=== PATIENT | female | born 2005 | race Caucasian/White ===

== ENCOUNTER 2024-09-16 03:41 | Emergency (ER) | payer SELFPAY ==
--- OUTSIDE RECORDS SUMMARY | 2024-09-15 13:45 | XMS_ITS | Encounter Summary ---
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 * GERD in Adults: Diet Changes (Montserratian) documented in this encounter Progress Notes * Tatum Leos MD - 09/15/2024 1:45 PM EDT Chief Complaint Vomiting, Heartburn, and weight gain Subjective Elif Aj presents to [facility] acid reflux Symptoms are: new. [...] the AVS if appropriate. Patient or patient licensing representative verbalized consent for the use of Ambient Listening during the visit with Tatum Leos MD for chart documentation. 09/15/2024 14:09 EDT Electronically signed by Tatum Leos MD, 09/15/24, 2:10 PM EDT. documented in this encounter Plan of Treatment Upcoming Encounters Date Type Department Care Team (Late st Contact Info) Description 10/04/2024 2:00 PM EDT Office Visit [facility] [address] [place] [phone] Frances Marsh, [address] [address] 12/22/2024 9:00 AM EST Office Visit [facility] [address] [phone] Tatum Leos MD [address] [address] documented as of this encounter Visit Diagnoses Diagnosis Gastroesophageal reflux disease, unspecified whether esophagitis present- Primary Nausea and vomiting, unspecified vomiting type Weight gain due to medication documented in this encounter Care Teams Merchandise Director Relationship Specialty Start Date End Date Tatum Leos MD [address] [address] PCP - General Family Medicine 11/29/22 documented as of this encounter
--- NOTE | 2024-09-16 03:51 | XR_ITS ---
PROCEDURE INFORMATION: Exam: XR Left Ankle Exam date and time: 09/16/2024 4:05 AM Age: 19 years old Clinical indication: Pain; Ankle; Left; Additional info: Fall ttp lateral maleolus TECHNIQUE: Imaging protocol: Radiologic exam of the left ankle. Views: 3 or more views. COMPARISON: No relevant prior studies available. FINDINGS: Bones/joints: No acute fracture or dislocation. Soft tissues: Soft tissue swelling of the ankle. IMPRESSION: No acute fracture or dislocation.
--- NOTE | 2024-09-16 03:51 | XR_ITS ---
PROCEDURE INFORMATION: Exam: XR Right Ankle Exam date and time: 09/16/2024 4:05 AM Age: 19 years old Clinical indication: Pain; Ankle; Right; Additional info: Fall ttp medial maleolus TECHNIQUE: Imaging protocol: Radiologic exam of the right ankle. Views: 3 or more views. COMPARISON: No relevant prior studies available. FINDINGS: Bones/joints: Mildly displaced acute fracture of the posterior malleolus. Small acute avulsed fracture fragment from the medial malleolus. Soft tissues: Significant soft tissue swelling of the ankle. IMPRESSION: 1. Mildly displaced acute fracture of the posterior malleolus. 2. Small acute avulsed fracture fragment from the medial malleolus.
--- NOTE | 2024-09-16 03:52 | ED_ITS ---
Discharge Plan Disposition Patient Disposition: Home, Self-Care Condition: Good Prescriptions Prescriptions: New hydrocodone-acetaminophen 5-325 mg tablet 1 tab PO BID PRN (Reason: pain (scale score 7-10)) Qty: 7 0RF Referrals Follow up/Referrals: Provider,Referral, [Primary Care Provider, Medical] - See instructions Activity Restrictions/Add. Instructions Additional Instructions/Restrictions: You were evaluated in the ER and I believe to be appropriate for discharge at this time. Do not put any weight on the right foot or leg. Use the crutches to get around. Keep the splint clean and dry. Do not apply pressure to the splint or let it get wet. If the splint becomes damaged or wet, return to the ER for replacement. Take Tylenol and ibuprofen if needed for pain, do not exceed the recommended dose on the bottle. If your pain is not controlled with these medications, then you can take the prescribed hydrocodone if needed for severe, breakthrough pain. Only take this medication as directed as it can cause dependence and addiction. It also has multiple side effects including sleepiness, impaired judgment, nausea, constipation. If you have constipation, take a stool softener or mild laxative. Do not drive or operate machinery after taking this medication. Be aware that this medication contains acetaminophen (Tylenol) so consider this when calculating your daily dose so you do not take too much Tylenol. Go to Dr. Harrell's office at 8:30 this morning for follow-up. They are going to fit you into her schedule. Tell them you are an ER referral and she is expecting you. Also follow-up with your primary care doctor. Return to the ER with any new, worsening, or otherwise concerning symptoms as discussed. Clinical Impressions Clinical Impression: Ankle fracture, Closed fracture of medial malleolus of right ankle, Closed fracture of posterior malleolus of right tibia Stand Alone Forms Stand Alone Forms: Work/School Release Print Language Print Language: Croatian Discharge ED Provider: Rosaura Sierra General Adult HPI General Chief complaint: Extremity Injury, Lower Stated complaint: fall, injuries both ankles, can't put weight on R Time Seen by Provider: 09/16/24 03:51 History of Present Illness HPI narrative: 19-year-old female with a history of GERD presents to the ER complaining of bilateral ankle pain after a fall nearly 6 hours prior to arrival. Patient reports she was getting out of her boyfriend's car but her legs have been asleep from the way she was sitting still when she got out, her ankles both rolled. She reports them both rolling to the outsides but describes pain on the inside of her right ankle, outside of her left ankle. She states she has been able to ambulate, but very slowly with assistance since the time of the injury. She took Tylenol prior to arrival. She states her right ankle hurts more than the left and she is wearing a brace on the right at the time of arrival. She did not strike her head or lose consciousness, no other injuries, no other complaints or concerns. Related Data Previous Rx's ?Medication ?Instructions ?Recorded hydrocodone 5 mg-acetaminophen 325 1 tab PO BID PRN pa in (scale score 09/16/24 mg tablet 7-10) #7 tabs Allergies Allergy/AdvReac Type Severity Reaction Status Date / Time No Known Allergies Allergy Verified 09/16/24 04:02 [facility] Disclaimer: The information contained in this section may have been updated after the patient was seen, as this information can be updated by other users. Social History Smoking Status: Current every day smoker alcohol intake: never current occupational status: employed Travel in the last 8 weeks?: None ROS Obtained: Yes Systems reviewed as appropriate & no additional complaints except as documented Per HPI Physical Exam General General appearance: alert, in no apparent distress and obese Head Head exam: atraumatic and normocephalic Eye Eye exam: Present PERRL and EOMI ENT ENT exam: Present mucous membranes moist Neck Neck exam: Present normal inspection and full ROM Chest Chest inspection: Present symmetric chest wall rise Respiratory Respiratory exam: Absent respiratory distress or stridor Cardiovascular Cardiovascular exam: Present regular rate and normal rhythm Extremities Exam Extremities exam: Present full ROM, tenderness (Moderate tenderness to palpation over the right medial malleolus, mild tenderness over the left lateral malleolus. No deformity or ecchymosis. No tenderness over the Achilles tendons, no tenderness over the fifth metatarsals. Negative Mccoy test bilaterally), joint swelling (Mild swelling in both ankles, right slightly more than left) and other (Neurovascularly intact throughout, palpable DP and PT pulses) Neurological Exam Neurological exam: Present alert and oriented X3; Absent motor sensory deficit Psychiatric Psychiatric exam: Present normal affect and normal mood Skin Skin exam: Present warm and dry Medical Decision Making Medical Records Screening: Per USPSTF and CDC recommendations, given the prevalence of disease in our region, it is our hospital?s policy to screen for HIV and viral Hepatitis for all patients aged 18 and over and those with ongoing risk factors. [place] Inquiry Pt receiving controlled substance: Yes [place] was queried for this patient: No Reason not queried -: Emergent pt cond-no time (acute fx, narcotic pain control appropriate) Risks and benefits of using a controlled substance: were discussed with pt by me (Including do not drive or operate machinery, potential side effects, potential for addiction) Vital Signs: 09/16/24 03:53 09/16/24 04:01 09/16/24 05:05 Temperature 98.7 F Temperature Source Oral Pulse Rate 83 Pulse Rate [Bilateral Dorsalis Pedis] 85 Pulse Rate [Right] 99 H Respiratory Rate 16 16 Blood Pressure 148/88 H Blood Pressure [Right Arm] 131/100 H Blood Pressure Mean [Right Arm] 110 02 Sat by Pulse Oximetry 100 100 Oxygen Delivery Method Room Air Orders (Tests/Meds): ED MEDICATIONS Discontinued Medications Generic Name Dose Route Start Last Admin Trade Name Freq PRN Reason Stop Dose Admin Ibuprofen 800 mg 09/16/24 03:52 09/16/24 04:07 Ibuprofen 800 Mg Tablet PO 09/16/24 03:53 800 mg ONCE ONE Administration Oxycodone HCl 5 mg 09/16/24 05:44 09/16/24 05:50 Oxycodone 5mg Immediate Release Tablet PO 09/16/24 05:45 5 mg ONCE ONE Administration ORDERS Category Date Time Status Ankle XR - Left minimum 3 Views [XR ankle LT min 3V] Exams 09/16/24 03:51 Completed Stat Ankle XR -Right minimum 3 Views [XR ankle RT min 3V] Exams 09/16/24 03:51 Completed Stat Medical Decision Narrative: In summary, this 19-year-old female presents to the emergency department today with bilateral ankle pain after fall nearly 6 hours prior to arrival. On initial evaluation patient is hemodynamically stable, afebrile, exam notable for tenderness of the right medial malleolus without deformity, crepitus, or bruising, tenderness of the left lateral malleolus without deformity, crepitus, or bruising. Patient is neurovascularly intact throughout. There is no other evidence of injury.. Differential diagnosis includes but is not limited to fracture, dislocation, sprain, strain, I considered Achilles tendon injury but patient has no tenderness of the Achilles, plantarflexion is intact, negative Mccoy test. Considered other injuries as well but do not appreciate evidence of these on exam. X-rays of the bilateral ankles were ordered for workup. Patient took Tylenol prior to arrival. Ibuprofen administered in the ER. X-rays personally interpreted do not demonstrate any acute osseous injury of the left ankle, I appreciate a posterior malleolus fracture of the right ankle and possibly a medial malleolus fracture as well, awaiting radiology reads. Radiology read does, that there is both a posterior and medial malleolus fracture of the right ankle. Patient remains neurovascularly intact. Because these are only minimally displaced I am going to splint the patient in the ER and have her follow-up outpatient with Dr. Harrell with podiatry. Patient received oral oxycodone in the ER prior to splinting. Splint was applied, see procedure note for details. [place] prescribed to the patient for severe breakthrough pain if needed at home. She was given explicit instructions on careful use of this medication due to its potential side effects and risk of dependency. Patient was given instructions on continued home symptomatic monitoring and management, splint care, use of instructions, follow-up including referral to Dr. Harrell (I personally reached out to Dr. Harrell requesting immediate follow-up and she is going to squeeze the patient into our schedule this morning, 09/16/2024 at 8:30 AM), and strict return precautions for the ER. She indicated understanding and the patient was discharged in stable condition. Critical Care Critical Care Time Critical Care Time: No
[2024-09-16 03:53] VITALS: BP 131/100; PULSE 99; RESP 16; TEMP 37.1; O2SAT 100; BMI 40.8
[2024-09-16 04:01] VITALS: PULSE 85
[2024-09-16] MEDS: IBUPROFEN 800 MG TABLET PO (04:07)
[2024-09-16 05:05] VITALS: BP 148/88; PULSE 83; RESP 16; O2SAT 100
[2024-09-16] MEDS: OXYCODONE 5MG IMMEDIATE RELEASE TABLET 5 MG PO (05:50)
--- NOTE | 2024-09-16 05:55 | PC.NURSE ---
Addendum entered by Carrie Rasheed RN 09/16/24 06:01: Correction- Splint applied. Not a cast Original Note: provider at bed side. Applying Cast
[2024-09-16 06:09] VITALS: BP 130/94; PULSE 87; RESP 16; TEMP 37.1; O2SAT 100
[2024-09-16 06:14] VITALS: BP 135/94; PULSE 94; RESP 16; O2SAT 99
--- OUTSIDE RECORDS SUMMARY | 2024-09-16 06:17 | XMS_ITS | Clinical Summary ---
Author Organization Healthcare Address [address] [place] [address] Care Team Providers Care Dieing Out Machine Operator Name Role Phone Pcp, No Primary Care Provider Unavailabl e Allergies No known active allergies Medications multivitamin (Trinatal Rx 1) 60-1 MG tablet tablet Take 1 tablet by mouth 1 (one) time each day. 30 tablet 1 10/23/19 24 Active pyridoxine (Vitamin B-6) 25 MG tablet Take 1 tablet (25 mg) by mouth 3 (three) times a day if needed (nausea/vomiting) . 25 tablet 10/23/19 24 Active cyclobenzaprine (Flexeril) 5 MG tablet Take 1 tablet (5 mg) by mouth 3 (three) times a day. 10 tablet 11/05/19 24 Active acetaminophen (Tylenol) 325 MG tablet Take 2 tablets (650 mg) by mouth every 6 (six) hours if needed for headaches or pain. Under [facility] law, monthly prescriptions (30 days) can be refilled at 25 days and three-month prescriptions (90 days) at 80 days. Please contact the insurance company with questions if refills are denied. 40 tablet 1 11/05/19 24 Active Social History Tobacco Use Types Packs/Day Years Used Date Smoking Tobacco: Every Day Cigarettes Smokeless Tobacco: Never Tobacco Cessation:Ready to Q uit: Not Asked; Counseling Given: Not Answered Alcohol Use Standard Drinks/Week Comments Not Currently 0 (1 standard drink = 0.6 oz pur e alcohol) PHQ-2 Answer Date Recorded Patient Health Questionnaire-2 Score 2 11/24/2023 [place] Depression Scale Answer Date Recorded [place] Depression Scale Total 8 11/24/2023 The thought of harming myself has occurred to me . Never 11/24/2023 PHQ-2A Answer Date Recorded Depression Risk 2 11/24/2023 Comments No Sex and Gender Information Value Date Recorded Sex Assigned at Not on file Legal Sex Female 10:54 AM EST Gender Identity Not on file Sexual Orientation Not on file Last Filed Vital Signs Vital Sign Reading Time Taken Comments Blood Pressure 113/77 11/24/2023 8:23 AM EDT Pulse 68 11/24/2023 8:23 AM EDT Temperature 36.6 C (97.8 F) 11/24/2023 8:23 AM EDT Respiratory Rate 18 11/24/2023 8:23 AM EDT Oxygen Saturation 97% 11/24/2023 8:23 AM EDT Inhaled Oxygen Concentration - - Weight 102 kg (224 lb 6.9 oz) 11/24/2023 8:23 AM EDT Height 162.6 cm (5' 4 ) 11/04/2023 9:22 PM EDT Body Mass Index 38.52 11/04/2023 9:22 PM EDT Plan of Treatment Health Maintenance Due Date Last Done Comments [facility]-HIV Screening 2004 [facility]-/Child/Adol SDOH Screenings 2004 [facility]-IPV Vaccines (2 of 3 - 4-dose series) 10/17/2009 09/19/2009, 09/13/2005, 2004, Additional history exists [facility]- SDOH Screenings 2022 [facility]-Adult SDOH Screenings 2022 [facility]-Pneumococcal Vaccine: Pediatrics (0 to 5 Years) and At-Risk Patients (6 to 49 Years) (1 of 2 - PCV) 2023 09/13/2005, 2004, 2004 [id number] Vaccine ( season) 2023 12/20/2021, 10/05/2021, 02/01/2021, Additional history exists [facility]-Influenza Vaccine (#1) 10/11/202411/14, 12/20/2021, 02/01/2021, Additional history exists [facility]-Depression Screening 11/23/2024 024, 11/24/2023, 11/24/2023 [facility]-DTaP,Tdap,and Td Vaccines (7 - Td or Tdap) 12/29/2024 12/29/2014, 09/19/2009, 06/04/2007, Additional history exists [facility]-Zoster Vaccines (1 of 2) 2054 09/19/2009, 09/13/2005 [facility]-HIB Vaccines Completed 09/13/2005, , 2004 [facility]-Hepatitis B Vaccines Completed 006, 2004, 2004 [facility]-Varicella Vaccines Completed 09/19/2009, 2005 [facility]-Hepatitis A Vaccines Completed 05/21/2021, 12/11 HPV Vaccines Completed 10/01/2021, 05/11, 03/21/2021 [facility]-Hepatitis C Screening Completed 11/04/2023 [facility]-Obesity Intervention Completed 11/24/2023 [facility]-Rotavirus Vaccines Aged Out No lo nger eligible based on patient's age to complete this topic Procedures Procedure Name Priority Date/Time Associated Diagnosis Comments HEPATITIS C ANTIBODY - ED W/REFLEX TO HCV QUANT PCR STAT 11/04/2023 9:51 PM EDT from Last 3 Months or Most Recently Relevant to Health Maintenance Results * Hepatitis C Antibody - ED (11/04/2023 9:51 PM EDT) Hepatitis C Antibody Negative Negative 11/04/2023 11:48 PM EDT [facility] Blood Venous blood specimen / Unknown Venipuncture / Unknown 11/04/2023 9:51 PM EDT 11/04/2023 10:07 PM EDT us Karen Christie MD LAB BLOOD ORDERABLES Final Re sult [facility] [address] [place] [address] from Last 3 Months or Most Recently Relevant to Health Maintenance Care Teams Dieing Out Machine Operator Relationship Specialty Start Date End Date Pcp, No [address] [place] [address] PCP - General Family Medicine 10/23/23
--- OUTSIDE RECORDS SUMMARY | 2024-09-16 06:17 | XMS_ITS | Encounter Summary ---
[facility] Address [address] [place] [address] Care Team Providers Care Payroll And Benefits Manager Name Role Phone Tatum Leos MD Primary Care Provider [phone] Reason for Visit * Reason Comments Med Refill Encounter Details Date Type Department Care Team (Late st Contact Info) Description 07/19/2021 Refill [facility] [address] [place] [address] Tatum Leos MD [address] [facility] [address] [place] [address] Major depressive disorder, recurrent episode, moderate degree Social History Tobacco Use Types Packs/Day Years Used Date Smoking Tobacco: Never Smokeless Tobacco: Never Alcohol Use Standard Drinks/Week Comments Never 0 (1 standard drink = 0.6 oz pur e alcohol) PHQ-2 Answer Date Recorded Retired Total Score 19 06/07/2021 Comments No Sex and Gender Information Value Date Recorded Sex Assigned at Female 08/26/2024 3:37 PM EDT Legal Sex Female 9:13 AM EDT Gender Identity Not on file Sexual Orientation Not on file documented as of this encounter Plan of Treatment Upcoming Encounters Date Type Department Care Team (Late st Contact Info) Description 10/04/2024 2:00 PM EDT Office Visit [facility] [address] [place] [phone] Frances Marsh, [address] [address] 12/22/2024 9:00 AM EST Office Visit [facility] [address] [phone] Tatum Leos MD [address] [address] documented as of this encounter Visit Diagnoses Diagnosis Major depressive disorder, recurrent episode, moderate degree Major depressive disorder, recurrent episode, moderate documented in this encounter Additional Health Concerns Infection Onset Date Last Indicated Resolved Time COVID (rule out) 01/22/2024 01/22/2024 01/22/2024 9:03 AM EST COVID (confirmed) 01/22/2024 01/22/2024 04/21/2024 9:08 PM EDT Assessment Noted Time PHQ-2 Depression Total Score: 2 04/25/19 22 3:27 PM EDT documented as of this encounter Care Teams Payroll And Benefits Manager Relationship Specialty Start Date End Date Tatum Leos MD [address] [address] PCP - General Family Medicine 11/29/22 documented as of this encounter
--- OUTSIDE RECORDS SUMMARY | 2024-09-16 06:17 | XMS_ITS | Encounter Summary ---
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 Not on file Not on file documented as of this encounter Plan of Treatment Upcoming Encounters Date Type Department Care Team (Late st Contact Info) Description 10/04/2024 2:00 PM EDT Office Visit [facility] [address] [place] [address] [place] [phone] Frances Marsh, [employer] [address] 12/22/2024 9:00 AM EST Office Visit [facility] [address] [facility] [place] [address] [phone] Tatum Leos MD [address] [address] documented as of this encounter Visit Diagnoses Not on filedocumented in this encounter Care Teams Regrinder Operator Relationship Specialty Start Date End Date Tatum Leos MD [address] [facility] [address] PCP - General Family Medicine 11/29/22 documented as of this encounter
--- OUTSIDE RECORDS SUMMARY | 2024-09-16 06:17 | XMS_ITS | Encounter Summary ---
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 Not on file Not on file documented as of this encounter Functional Status documented as of this encounter Plan of Treatment Upcoming Encounters Date Type Department Care Team (Late st Contact Info) Description 10/04/2024 2:00 PM EDT Office Visit [facility] [address] [place] [phone] Frances Marsh LCSW [address] [place] [address] 12/22/2024 9:00 AM EST Office Visit [facility] [address] [phone] Tatum Leos MD [address] [facility] [place] [address] [address] documented as of this encounter Visit Diagnoses Not on filedocumented in this encounter Care Teams Photo Finish Photographer Relationship Specialty Start Date End Date Tatum Leos MD [address] [facility] [place] [address] [address] PCP - General Family Medicine 11/29/22 documented as of this encounter
--- OUTSIDE RECORDS SUMMARY | 2024-09-16 06:18 | XMS_ITS | Clinical Summary ---
Author Organization [facility] Address [address] [place] [address] Care Team Providers Care Windows Software Developer Name Role Phone Tatum Leos MD Primary Care Provider [phone] Allergies Active Allergy Reactions Criticality Noted Date Comments Bupropion Mental Status Change High 04/26/2024 Suicidal thoughts Medications * This document contains information received from the source organization and may not represent a complete record from that organization. norgestimate-ethi nyl estradiol (Ortho-Cyclen, 28,) 0.25-35 MG-MCG per tabletIndications :Encounter for surveillance of contraceptive pills,Dysmenorrhe a Take 1 tablet by mouth Daily. 84 tablet 4 024 Active lamoTRIgine (LaMICtal) 25 MG tabletIndications :BOBBY (generalized anxiety disorder),Unspeci fied mood (affective) disorder Take 1 tablet by mouth Daily for 14 days, THEN 2 tablets Daily for 14 days, THEN 3 tablets Daily for 32 days. Notify office with rash 138 tablet 025 Active ARIPiprazole (Abilify) 2 MG tabletIndications :Unspecified mood (affective) disorder Take 1 tablet by mouth Daily. 30 tablet 1 025 Active Additional Information Patient not taking.Reported on 09/15/2024 propranolol (INDERAL) 10 MG tabletIndications :BOBBY (generalized anxiety disorder) Take 1-2 tablets by mouth 2 (Two) Times a Day As Needed (anxiety). 120 tablet 025 Active Additional Information Patient not taking.Reported on 09/15/2024 ondansetron ODT (ZOFRAN-ODT) 4 MG disintegrating tabletIndications :Nausea and vomiting, unspecified vomiting type Place 1 tablet on the tongue Every 8 (Eight) Hours As Needed for Nausea or Vomiting. 30 tablet 3 025 Active pantoprazole (PROTONIX) 40 MG EC tabletIndications :Gastroesophageal reflux disease, unspecified whether esophagitis present Take 1 tablet by mouth Every Morning Before Breakfast. 90 tablet 3 025 Active omeprazole (priLOSEC) 20 MG capsuleIndication s:Gastroesophagea l reflux disease without esophagitis,Chron ic nausea Take 1 capsule by mouth Every Morning Before Breakfast. 90 capsule 1 025 2024 Discontinued propranolol (INDERAL) 10 MG tabletIndications :BOBBY (generalized anxiety disorder) Take 1-2 tablets by mouth 2 (Two) Times a Day. 120 tablet 025 2024 Discontinued Active Problems Problem Noted Date Diagnosed Date Weight gain due to medication 09/15/2024 Major depressive disorder, recurrent, in full re mission 11/14/2022 Insomnia due to medical condition 05/21/2021 BOBBY (generalized anxiety disorder) 04/24/2021 Major depressive disorder, r ecurrent episode, moderate degree 03/21/2021 Gastroesophageal reflux disease without esophagi tis 03/21/2021 Encounters * This document contains information received from the source organization and may not represent a complete record from that organization. Date Type Department Care Team Description 09/15/2024 1:45 PM EDT Office Visit [facility] [address] [address] Tatum Leos MD Gastroesophageal reflux disease, unspecified whether esophagitis present (Primary Dx); Nausea and vomiting, unspecified vomiting type; Weight gain due to medication 09/15/2024 Travel 08/27/2024 Travel 07/15/2024 Travel from Last 3 Months Immunizations Immunization Administration Dates Next Due COVID-19 (MODERNA) BIVALENT 12+YRS 12/20/2021 COVID-19 (PFIZER) Purple Cap Monovalent 06/23/2020,05/30/2020 Covid-19 (Pfizer) Hall Cap Monovalent 10/05/2021 DTaP 09/13/2005,2004,2004 DTaP / IPV 09/19/2009 DTaP, Unspecified 06/04/2007, 6,2004,06/27 Flu Vaccine Quad PF >36MO 12/13/2014,12/14/2013 FluMist 2-49yrs 11/16/2012 Fluzone (or Fluarix & Flulav al for VFC) >6mos 11/14/2022,12/13/2014,12/14/2013 HPV Quadrivalent 05/21/2021,03/21/2021 Hep A, 2 Dose 05/21/2021,12/29/2014 Hep B, Unspecified 09/13/2005,2004, 005 Hepatitis B Adult/Adolescent IM 09/13/2005,06/27,2004 HiB 09/13/2005,2004,2004 Hpv9 10/01/2021 IPV 09/13/2005,2004,2004 Influenza Injectable Mdck Pf Quad 12/20/2021 Influenza, Unspecified 12/20/2021,12/20/2021, MMR 09/19/2009,09/13/2005 Meningococcal B,(Bexsero) 03/21/2021,09/29/2020 Meningococcal MCV4P (Menactra) 09/29/2020,2014 Meningococcal, Unspecified 12/29/2014 Pneumococcal, Unspecified 09/13/2005,2004, 2004 Polio, Unspecified 09/13/2005,2004, 005 Tdap 12/29/2014 Varicella 09/19/2009,09/13/2005 Family History Medical History Relation Name Comments Alcohol abuse Brother 2 Rivera Aj Anxiety disorder Brother 2 Rivera Aj Depression Brother 2 Rivera Aj Diabetes Brother 2 Rivera Aj Mental illness Brother 2 Rivera Aj Alcohol abuse Brother 3 Rivera Aj Anxiety disorder Brother 3 Rivera Gilbertley Depression Brother 3 Rivera Aj Diabetes Brother 3 Rivera Aj Mental illness Brother 3 Rivera Aj Alcohol abuse Father Riccardo Aj Anxiety disorder Father Riccardo Aj Depression Father Riccardo Aj Diabetes Father Riccardo Aj Drug abuse Father Riccardo Aj Learning disabilities Father Riccardo Aj ADHD Mental illness Father Riccardo Aj Cancer Maternal Aunt Gunjan Ibarra jaw, breast Diabetes Maternal Grandfather Chester Dawkins Drug abuse Maternal Grandfather Chester Dawkins COPD Maternal Great-Grandfather Cancer Maternal Great-Grandmother Anxiety disorder Mother Natalie Blue Depression Mother Natalie Blue Diabetes Mother Natalie Blue Drug abuse Mother Natalie Blue Mental illness Mother Natalie Blue Miscarriages / Stillbirths Mother Natalie Blue Drug abuse Paternal Grandfather Clinton Aj Diabetes Paternal Grandmother Raquel Aj Drug abuse Paternal Grandmother Raquel Aj Relation Name Status Comments Brother 1 Alive Brother 2 Rivera Aj Brother 3 Rivera Aj Alive Father Riccardo Aj Maternal Aunt Gunjan Ibarra Maternal Grandfather Chester Dawkins Maternal Great-Grandfather Maternal Great-Grandmother Mother Natalie Blue Alive Paternal Grandfather Clinton Aj Alive Paternal Grandmother Raquel Aj Social History Tobacco Use Types Packs/Day Years [...] 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 file Not on file Last Filed Vital Signs Vital Sign Reading Time Taken Comments Blood Pressure 126/76 09/15/2024 1:54 PM EDT Pulse 97 09/15/2024 1:54 PM EDT Temperature 36.6 C (97.8 F) 09/15/2024 1:54 PM EDT Respiratory Rate 16 01/22/2024 8:54 AM EST Oxygen Saturation 98% 09/15/2024 1:54 PM EDT Inhaled Oxygen Concentration - - Weight 108 kg (238 lb 2 oz) 09/15/2024 1:54 PM E DT Height 162.6 cm (5' 4.02 ) 09/15/2024 1:54 PM ED T Body Mass Index 40.85 09/15/2024 1:54 PM EDT Plan of Treatment Upcoming Encounters Date Type Department Care Team (Late st Contact Info) Description 10/04/2024 2:00 PM EDT Office Visit [facility] [address] [place] [phone] [address] [address] 12/22/2024 9:00 AM EST Office Visit [facility] [address] [phone] Tatum Leos MD [address] [address] Health Maintenance Due Date Last Done Comments CHLAMYDIA SCREENING 07/25/2020 Pneumococcal Vaccine 0-49 (1 of 2 - PCV) 2023 09/13/2005, 2004, 2004 COVID-19 Vaccine (2023-2 5 season) 2023 12/20/2021, 10/05/2021, 02/01/2021, Additional history exists INFLUENZA VACCINE 11/10/2024 11/14/2022, , 12/20/2021, Additional history exists ANNUAL PHYSICAL 12/18/2024 12/19/2023 TDAP/TD VACCINES (2 - Td or Tdap) 12/29/2024 015 MENINGOCOCCAL VACCINE Completed 09/29/2020 , 12/29/2014, 12/29/2014 MENINGOCOCCAL B VACCINE Completed 03/21/2021, 09/29 HPV VACCINES Completed 10/01/2021, 05/11, 03/21/2021 HEPATITIS C SCREENING Completed 11/04/2023 Care Teams Windows Software Developer Relationship Specialty Start Date End Date Tatum Leos MD [address] [place] [id number] PCP - General Family Medicine 11/29/22
--- OUTSIDE RECORDS SUMMARY | 2024-09-16 06:18 | XMS_ITS | Encounter Summary ---
Author Organization Healthcare Address [address] [place] [address] Care Team Providers Care Regulatory Lead Name Role Phone Pcp, No Primary Care Provider Unavailabl e Encounter Details Date Type Department Care Team ([facility] st Contact Info) Description 03/30/2021 Community [facility] [address] [place] [address] Lashell Cuello, AUTOMOTIVE SERVICE CONSULTANT [address] [place] [address] Chronic nausea (Primary Dx); Gastroesophageal reflux disease without esophagitis Social History Tobacco Use Types Packs/Day Years Used Date Smoking Tobacco: Never Assessed Comments Unknown Sex and Gender Information Value Date Recorded Sex Assigned at Not on file Legal Sex Female 10:54 AM EST Gender Identity Not on file Sexual Orientation Not on file documented as of this encounter Plan of Treatment Not on file documented as of this encounter Visit Diagnoses Diagnosis Chronic nausea- Primary Nausea alone Gastroesophageal reflux disease without esophagitis Esophageal reflux documented in this encounter Care Teams Regulatory Lead Relationship Specialty Start Date End Date Pcp, No [address] [place] [address] PCP - General Family Medicine 10/23/23 documented as of this encounter
--- OUTSIDE RECORDS SUMMARY | 2024-09-16 06:18 | XMS_ITS | Encounter Summary ---
Author Organization Healthcare Address [address] [place] [address] Care Team Providers Care Damper Fitter Name Role Phone PcpAislinn Primary Care Provider Unavailabl e Encounter Details Date Type Department Care Team ([facility] st Contact Info) Description 03/27/2021 Community [facility] [address] [place] [address] Lashell Cuello, RESEARCH HOME ECONOMIST [address] [place] [address] Chronic nausea (Primary Dx) Social History Tobacco Use Types Packs/Day Years [...] Diagnoses Diagnosis Chronic nausea- Primary Nausea alone documented in this encounter Care Teams Damper Fitter Relationship Specialty Start Date End Date Pcp, Aislinn [address] [place] [address] PCP - General Family Medicine 10/23/23 documented as of this encounter
== END 2024-09-16 06:31 | disposition home or self-care (01) ==
LOC: ER 06:16
PROVIDERS: Emergency Provider Emergency Medicine
DX: S82.51XA Displaced fracture of medial malleolus of right tibia, initial encounter for closed fracture (principal); M25.571 Pain in right ankle and joints of right foot; M25.572 Pain in left ankle and joints of left foot; X50.1XXA Overexertion from prolonged static or awkward postures, initial encounter
CPT/HCPCS: 29515; 73610; 99284

== ENCOUNTER 2024-09-21 13:48 | Outpatient (CLI) | payer SELFPAY ==
--- OUTSIDE RECORDS SUMMARY | 2024-09-15 13:45 | XMS_ITS | Encounter Summary ---
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 * GERD in Adults: Diet Changes (Sami) documented in this encounter Progress Notes * Tatum Leos MD - 09/15/2024 1:45 PM EDT Chief Complaint Vomiting, Heartburn, and weight gain Subjective Elif Aj presents to [facility] acid reflux Symptoms are: new. [...] AVS if appropriate. Patient or patient customer account representative verbalized consent for the use of Ambient Listening during the visit with Tatum Leos MD for chart documentation. 09/15/2024 14:09 EDT Electronically signed by Tatum Leos MD, 09/15/24, 2:10 PM EDT. documented in this encounter Plan of Treatment Upcoming Encounters Date Type Department Care Team (Late st Contact Info) Description 10/04/2024 2:00 PM EDT Office Visit [facility] [address] [place] [phone] Frances Marsh, [address] [address] 12/22/2024 9:00 AM EST Office Visit [facility] [address] [phone] Tatum Leos MD [address] [phone] documented as of this encounter Visit Diagnoses Diagnosis Gastroesophageal reflux disease, unspecified whether esophagitis present- Primary Nausea and vomiting, unspecified vomiting type Weight gain due to medication documented in this encounter Care Teams Conservation Technician Relationship Specialty Start Date End Date Tatum Leos MD [address] [address] PCP - General Family Medicine 11/29/22 documented as of this encounter
--- OUTSIDE RECORDS SUMMARY | 2024-09-21 13:51 | XMS_ITS | Encounter Summary ---
Author 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 on file Not on file documented as of this encounter Functional Status documented as of this encounter Plan of Treatment Upcoming Encounters Date Type Department Care Team (Late st Contact Info) Description 10/04/2024 2:00 PM EDT Office Visit [facility] [address] [place] [phone] Frances Marsh LCSW [address] [place] [address] 12/22/2024 9:00 AM EST Office Visit [facility] [address] [phone] Tatum Leos MD 2530 [facility] [address] [address] documented as of this encounter Visit Diagnoses Not on filedocumented in this encounter Care Teams Installation Supervisor Relationship Specialty Start Date End Date Tatum Leos MD 2530 [facility] [address] [address] PCP - General Family Medicine 11/29/22 documented as of this encounter
--- OUTSIDE RECORDS SUMMARY | 2024-09-21 13:51 | XMS_ITS | Encounter Summary ---
[facility] Address [address] [place] [address] Care Team Providers Care Forensic Photographer Name Role Phone Tatum Leos MD Primary Care Provider [phone] Reason for Visit * Reason Comments Med Refill Encounter Details Date Type Department Care Team (Late st Contact Info) Description 07/19/[address] [facility] [address] [place] [address] Tatum Leos MD [address] [facility] [address] [place] [address] Major depressive disorder, recurrent episode, moderate degree [...] Description 10/04/2024 2:00 PM EDT Office Visit [facility] [address] [place] [phone] Frances Marsh, [address] [address] 12/22/2024 9:00 AM EST Office Visit [facility] [address] [phone] Tatum Leos MD [address] [address] documented as of this encounter Visit Diagnoses [...] documented as of this encounter Care Teams Forensic Photographer Relationship Specialty Start Date End Date Tatum Leos MD [address] [address] PCP - General Family Medicine 11/29/22 documented as of this encounter
--- OUTSIDE RECORDS SUMMARY | 2024-09-21 13:51 | XMS_ITS | Encounter Summary ---
Author Organization Healthcare Address [address] [place] [address] Care Team Providers Care Histological Illustrator Name Role Phone Pcp, No Primary Care Provider Unavailabl e Encounter Details Date Type Department Care Team ([facility] st Contact Info) Description 03/30/2021 Community [facility] [address] [place] [address] Lashell Cuello, AUDIOMETRIST [address] [place] [address] Chronic nausea (Primary Dx); Gastroesophageal reflux disease [...] reflux documented in this encounter Care Teams Histological Illustrator Relationship Specialty Start Date End Date Pcp, No [address] [place] [address] PCP - General Family Medicine 10/23/23 documented as of this encounter
--- OUTSIDE RECORDS SUMMARY | 2024-09-21 13:51 | XMS_ITS | Encounter Summary ---
Author Organization Healthcare Address [address] [place] [address] Care Team Providers Care Union Representative Name Role Phone PcpAislinn Primary Care Provider Unavailabl e Encounter Details Date Type Department Care Team ([facility] st Contact Info) Description 03/27/2021 Community [facility] [address] [place] [address] Lashell Cuello, CIRCULATION CLERK [address] [place] [address] Chronic nausea (Primary Dx) Social History Tobacco [...] alone documented in this encounter Care Teams Union Representative Relationship Specialty Start Date End Date Pcp, Aislinn [address] [place] [address] PCP - General Family Medicine 10/23/23 documented as of this encounter
--- OUTSIDE RECORDS SUMMARY | 2024-09-21 13:51 | XMS_ITS | Clinical Summary ---
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
--- OUTSIDE RECORDS SUMMARY | 2024-09-21 13:51 | XMS_ITS | Clinical Summary ---
Author Organization Healthcare Address [address] [place] [address] Care Team Providers Care Route Sales Delivery Driver Name Role Phone Pcp, No Primary Care [...] if needed for headaches or pain. Under [facility] law, monthly prescriptions (30 days) can [...] Recorded Patient Health Questionnaire-2 Score 2 11/24/2023 [place] Depression Scale Answer Date Recorded [place] Depression Scale Total 8 11/24/2023 The thought [...] Date Last Done Comments [facility]-HIV Screening 2004 [facility]-Infant/Child/Adol SDOH Screenings 2004 [facility]-IPV Vaccines (2 of 3 - 4-dose series) 10/17/2009 09/19/2009, 09/13/2005, 2004, Additional history exists [facility]- SDOH Screenings 2022 [facility]-Adult SDOH Screenings 2022 [facility]-Pneumococcal Vaccine: Pediatrics (0 to 5 Years) and At-Risk Patients (6 to 49 Years) (1 of 2 - PCV) 2023 09/13/2005, 2004, 2004 [id number] Vaccine ( season) 2023 12/20/2021, 10/05/2021, 02/01/2021, [...] Antibody Negative Negative 11/04/2023 11:48 PM EDT [facility] Blood Venous blood specimen / Unknown Venipuncture / Unknown 11/04/2023 9:51 PM EDT 11/04/2023 10:07 PM EDT us Karen Christie MD LAB BLOOD ORDERABLES Final Re sult [facility] [address] [place] [address] from Last 3 Months or Most Recently Relevant to Health Maintenance Care Teams Route Sales Delivery Driver Relationship Specialty Start Date End Date Pcp, No [address] [place] [address] PCP - General Family Medicine 10/23/23
--- OUTSIDE RECORDS SUMMARY | 2024-09-21 13:51 | XMS_ITS | Encounter Summary ---
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 on file Not on file documented as of this encounter Plan of Treatment Upcoming Encounters Date Type Department Care Team (Late st Contact Info) Description 10/04/2024 2:00 PM EDT Office Visit [facility] [address] [place] [address] [place] [address] Frances Marsh, SENIOR POLICY ANALYST[address] [address] 12/22/2024 9:00 AM EST Office Visit [facility] [address] [facility] [address] [phone] Tatum Leos MD 2530 [facility] [address] [address] documented as of this encounter Visit Diagnoses Not on filedocumented in this encounter Care Teams Yarn Washer Relationship Specialty Start Date End Date Tatum Leos MD 2530 [facility] [address] [address] PCP - General Family Medicine 11/29/22 documented as of this encounter
--- NOTE | 2024-09-21 13:55 | XR_ITS ---
FINAL REPORT CLINICAL HISTORY: Evaluation of Left Foot Pain COMPARISON: none FINDINGS: Three views of the right foot show no obvious displaced fracture. Assessment of the bones is extremely limited due to artifact from plaster splint. The joint spaces appear normal. IMPRESSION: No obvious foot fracture. Reviewed, Interpreted and Dictated by Lexx Newman MD Transcribed by Michelle Sue Authenticated and . [facility]
--- NOTE | 2024-09-21 13:55 | XR_ITS ---
FINAL REPORT CLINICAL HISTORY: Evaluation of Fracture of right Ankle Tibia COMPARISON: 09/16/2024 FINDINGS: Three views of the right ankle show mild widening of the lateral ankle mortise. There is a nondisplaced fracture of the posterior malleolus. Fracture of the medial malleolus base is not well seen, obscured by plaster splint. IMPRESSION: No significant change, although fracture not well seen. Reviewed, Interpreted and Dictated by Lexx Newman MD Transcribed by Michelle Sue Authenticated and [facility]
== END 2024-09-21 23:59 | disposition home or self-care (01) ==
LOC: RAD 13:49
PROVIDERS: PCP Family Medicine; Visit Provider Podiatrist
DX: S82.891D Other fracture of right lower leg, subsequent encounter for closed fracture with routine healing (principal); S82.51XD Displaced fracture of medial malleolus of right tibia, subsequent encounter for closed fracture with routine healing; S93.402A Sprain of unspecified ligament of left ankle, initial encounter; M79.672 Pain in left foot
CPT/HCPCS: 73610; 73630

== ENCOUNTER 2024-09-29 06:38 | Outpatient (CLI) | payer SELFPAY ==
--- OUTSIDE RECORDS SUMMARY | 2024-09-15 13:45 | XMS_ITS | Encounter Summary ---
[facility] Address [address] [place] [address] Care Team Providers Care Drive In Waiter/Waitress Name Role Phone Tatum Leos MD Primary Care Provider [phone] Reason for Visit * Reason Comments Vomiting Heartburn weight gain Encounter Details Date Type Department Care Team (Latest Contact Info) Description 09/15/2024 1:45 PM EDT Office Visit [facility] [address] [phone] Tatum Leos MD [address] [phone] Gastroesophageal reflux disease, unspecified whether esophagitis present (Primary Dx); Nausea and vomiting, unspecified vomiting type; Weight gain due to medication Social History Tobacco Use Types Packs/Day Years Used Date Smoking Tobacco: Every Day Electronic Cigarette Smokeless Tobacco: Never Alcohol Use Standard Drinks/Week Comments Never 0 (1 standard drink = 0.6 oz pur e alcohol) PHQ-2 Answer Date Recorded Retired PHQ-9: Brief Depression Severity Measure Score 0 11/14/2022 PHQ-2 Answer Date Recorded Patient Health Questionnaire-9 Score 19 08/27/2024 Comments No Sex and Gender Information Value Date Recorded Sex Assigned at Female 08/26/2024 3:37 PM EDT Legal Sex Female 9:13 AM EDT Gender Identity Not on file Sexual Orientation Not on file 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 Not on file Not on file documented as of this encounter Last Filed Vital Signs Vital Sign Reading Time Taken Comments Blood Pressure 126/76 09/15/2024 1:54 PM EDT Pulse 97 09/15/2024 1:54 PM EDT Temperature 36.6 C (97.8 F) 09/15/2024 1:54 PM EDT Respiratory Rate - - Oxygen Saturation 98% 09/15/2024 1:54 PM EDT Inhaled Oxygen Concentration - - Weight 108 kg (238 lb 2 oz) 09/15/2024 1:54 PM E DT Height 162.6 cm (5' 4.02 ) 09/15/2024 1:54 PM ED T Body Mass Index 40.85 09/15/2024 1:54 PM EDT documented in this encounter Patient Instructions * Attachments The following attachments cannot be sent through Care Everywhere. * GERD in Adults: Diet Changes (Urdu) documented in this encounter Progress Notes * Tatum Leos MD - 09/15/2024 1:45 PM EDT Chief Complaint Vomiting, Heartburn, and weight gain Subjective Elif Aj presents to [facility] acid reflux Symptoms are: new. Onset was more than 5 years. Symptoms occur: daily. Symptoms include: change in stool, fatigue, headaches, nausea and vomiting. Pertinent negative symptoms include no abdominal pain, no anorexia, no joint pain, no chest pain, no chills, no congestion, no cough, no diaphoresis, no fever, no joint swelling, no myalgias, no neckpain, no numbness, no rash, no sore throat, no swollen glands, no dysuria, no vertigo, no visual change and no weakness. Treatment and/or Medications comments include: Omeprazole, Pepcid, Nexium History of Present Illness The patient is a 19-year-old female presenting for vomiting and heartburn. She reports that she was prescribed Abilify due to severe anxiety and anger issues, which were sideeffects of Lamictal. However, the Abilify caused her to vomit daily, leading to its discontinuation. She experiences significant heartburn in the center of her chest and throat, which prevents her from keeping food down. Her diet has significantly changed, and she now consumes more water and occasionally Coke. She has been taking Nexium, which provides some relief, but she still struggles to eat.She has noticed that acidic or greasy foods trigger her vomiting. Additionally, she reports constipation, which she believes is a side effect of Lamictal. She has not eaten anything today as omeprazole, which previously helped, now makes her feel unwell. Despite improving her diet and increasing her physical activity, she has gained weight. Even with her recent inability to eat, she continues to gain weight. Diet: Consumes more water and occasionally Coke; avoids acidic and greasy foods Coffee/Tea/Caffeine-containing Drinks: Occasionally drinks Coke Objective Vital Signs: BP 126/76 (BP Location: Left arm, Patient Position: Sitting, Cuff Size: Adult) Pulse 97 Temp 97.8 ??F (36.6 ??C) (Temporal) Ht 162.6 cm (64.02 ) Wt 108 kg (238 lb 2 oz) SpO2 98% BMI 40.85kg/m?? Estimated body mass index is 40.85 kg/m?? as calculated from the following: Height as of this encounter: 162.6 cm (64.02 ). Weight as of this encounter: 108 kg (238 lb 2 oz). The following portions of the patient's history were reviewed and updated as appropriate: allergies, current medications, past family history, past medical history, past social history, past surgicalhistory, and problem list. Physical Exam Vitals reviewed. Constitutional: General: She is not in acute distress. Appearance: She is morbidly obese. She is not ill-appearing, toxic-appearing or diaphoretic. Cardiovascular: Rate and Rhythm: Normal rate and regular rhythm. Pulmonary: Effort: Pulmonary effort is normal. Breath sounds: Normal breath sounds. Abdominal: General: Bowel sounds are normal. There is no distension. Palpations: Abdomen is soft. There is no mass. Tenderness: There is no abdominal tenderness. There is no guarding or rebound. Hernia: No hernia is present. Neurological: Mental Status: She is alert. Psychiatric: Behavior: Behavior normal. Result Review : The following data was reviewed by: Tatum Leos MD on 09/15/2024: Progress Notes by Renata Mccoy APRN (08/27/2024 10:15) Assessment and Plan Diagnoses and all orders for this visit: 1. Gastroesophageal reflux disease, unspecified whether esophagitis present (Primary) - pantoprazole (PROTONIX) 40 MG EC tablet; Take 1 tablet by mouth Every Morning Before Breakfast. Dispense: 90 tablet; Refill: 3 2. Nausea and vomiting, unspecified vomiting type - ondansetron ODT (ZOFRAN-ODT) 4 MG disintegrating tablet; Place 1 tablet on the tongue Every 8 (Eight) Hours As Needed for Nausea or Vomiting. Dispense: 30 tablet; Refill: 3 3. Weight gain due to medication Assessment & Plan 1. Vomiting and heartburn. - Severe heartburn in the center of the chest and throat, with difficulty keeping food down. Omeprazole is no longer effective and causes nausea. Nexium provides some relief but has not resolved the symptoms. - Prescription for pantoprazole 40 mg provided, to be taken on an empty stomach with a 30-minute wait before eating. This will replace the omeprazole. - Zofran 4 mg prescribed for temporary relief of vomiting. - If no improvement or if symptoms worsen after a month of pantoprazole treatment, return for further evaluation and potential additional testing, such as an ultrasound to check for gallstones. 2. Weight gain. - Experienced weight gain despite improved diet and increased exercise. - Likely a side effect of psychiatric medications, including Abilify and lamotrigine. - Discussion about weight gain related to medication side effects and frustration with inability tolose weight despite stopping medication. - Not a candidate for weight loss medications due to potential gastrointestinal side effects. Follow-up: Return in one month if no improvement or if symptoms worsen. Follow Up Return if symptoms worsen or fail to improve. Patient was given instructions and counseling regarding her condition or for health maintenance advice. Please see specific information pulled into the AVS if appropriate. Patient or patient customer development representative verbalized consent for the use of Ambient Listening during the visit with Tatum Leos MD for chart documentation. 09/15/2024 14:09 EDT Electronically signed by Tatum Leos MD, 09/15/24, 2:10 PM EDT. documented in this encounter Plan of Treatment Upcoming Encounters Date Type Department Care Team (Late st Contact Info) Description 10/04/2024 2:00 PM EDT Telemedicine [facility] [address] [place] [phone] Frances Marsh, [address] [address] 12/22/2024 9:00 AM EST Office Visit [facility] [address] [phone] Tatum Leos MD [address] [phone] documented as of this encounter Visit Diagnoses Diagnosis Gastroesophageal reflux disease, unspecified whether esophagitis present- Primary Nausea and vomiting, unspecified vomiting type Weight gain due to medication documented in this encounter Care Teams Drive In Waiter/Waitress Relationship Specialty Start Date End Date Tatum Leos MD [address] [address] PCP - General Family Medicine 11/29/22 documented as of this encounter
--- OUTSIDE RECORDS SUMMARY | 2024-09-29 06:42 | XMS_ITS | Encounter Summary ---
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 file Not on file documented as of this encounter Functional Status documented as of this encounter Plan of Treatment Upcoming Encounters Date Type Department Care Team (Late st Contact Info) Description 10/04/2024 2:00 PM EDT Telemedicine [facility] [address] [place] [address] [place] [address] Frances Marsh LCSW [address] [place] [address] 12/22/2024 9:00 AM EST Office Visit [facility] 25[address] [facility] [address] [phone] Tatum Leos MD 2530 [facility] [address] [address] documented as of this encounter Visit Diagnoses Not on filedocumented in this encounter Care Teams Nurseryman Assistant Relationship Specialty Start Date End Date Tatum Leos MD 2530 [facility] [address] [address] PCP - General Family Medicine 11/29/22 documented as of this encounter
--- OUTSIDE RECORDS SUMMARY | 2024-09-29 06:42 | XMS_ITS | Encounter Summary ---
[facility] [address] [place] [address] Care Team Providers Care Cheese Tester Name Role Phone Tatum Leos MD Primary Care Provider Reason for Visit * Reason Comments Med Refill Encounter Details Date Type Department Care Team (Late st Contact Info) Description 07/19/2021 Refill [facility] [address] [place] [address] Tatum Leos MD [address] [facility] [address] [place] [address] Major depressive disorder, recurrent episode, moderate degree [...] Info) Description 10/04/2024 2:00 PM EDT Telemedicine [facility] [address] [place] [phone] Frances Marsh, [address] [address] 12/22/2024 9:00 AM EST Office Visit [facility] [address] [phone] Tatum Leos MD [address] [address] documented as of this encounter Visit Diagnoses [...] documented as of this encounter Care Teams Cheese Tester Relationship Specialty Start Date End Date Tatum Leos MD [address] [address] PCP - General Family Medicine 11/29/22 documented as of this encounter
--- OUTSIDE RECORDS SUMMARY | 2024-09-29 06:42 | XMS_ITS | Encounter Summary ---
Author Organization Healthcare Address [address] [place] [address] Care Team Providers Care Service Aide Name Role Phone PcpAislinn Primary Care Provider Unavailabl e Encounter Details Date Type Department Care Team ([facility] st Contact Info) Description 03/27/2021 Community [facility] [address] [place] [address] Lashell Cuello, MANAGER BUSINESS CONTINUITY [address] [place] [address] Chronic nausea (Primary Dx) Social History Tobacco [...] alone documented in this encounter Care Teams Service Aide Relationship Specialty Start Date End Date Pcp, Aislinn [address] [place] [address] PCP - General Family Medicine 10/23/23 documented as of this encounter
--- OUTSIDE RECORDS SUMMARY | 2024-09-29 06:42 | XMS_ITS | Encounter Summary ---
Author Organization Healthcare Address [address] [place] [address] Care Team Providers Care Drywall Contractor Name Role Phone Pcp, No Primary Care Provider Unavailabl e Encounter Details Date Type Department Care Team ([facility] st Contact Info) Description 03/30/2021 Community [facility] [address] [place] [address] Lashell Cuello, TRIPPER [address] [place] [address] Chronic nausea (Primary Dx); Gastroesophageal reflux disease [...] reflux documented in this encounter Care Teams Drywall Contractor Relationship Specialty Start Date End Date Pcp, No [address] [place] [address] PCP - General Family Medicine 10/23/23 documented as of this encounter
--- OUTSIDE RECORDS SUMMARY | 2024-09-29 06:42 | XMS_ITS | Encounter Summary ---
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 on file Not on file documented as of this encounter Plan of Treatment Upcoming Encounters Date Type Department Care Team (Late st Contact Info) Description 10/04/2024 2:00 PM EDT Telemedicine [facility] [address] [place] [address] [place] [address] [address] [address] 12/22/2024 9:00 AM EST Office Visit [facility] [address] [phone] Tatum Leos MD 2530 [facility] Ramos [address] [address] documented as of this encounter Visit Diagnoses Not on filedocumented in this encounter Care Teams Fats And Oils Loader Relationship Specialty Start Date End Date Tatum Leos MD 2530 [facility] Richard [address] [address] PCP - General Family Medicine 11/29/22 documented as of this encounter
--- OUTSIDE RECORDS SUMMARY | 2024-09-29 06:42 | XMS_ITS | Clinical Summary ---
Author Organization Healthcare Address [address] [place] [address] Care Team Providers Care Livestock Inspector Name Role Phone Pcp, No Primary Care [...] if needed for headaches or pain. Under [facility] law, monthly prescriptions (30 days) can [...] Recorded Patient Health Questionnaire-2 Score 2 11/24/2023 [place] Depression Scale Answer Date Recorded [place] Depression Scale Total 8 11/24/2023 The thought [...] 2 - PCV) 2023 09/13/2005, 2004, 2004 [id number] Vaccine ( season) 2023 12/20/2021, 10/05/2021, 02/01/2021, [...] Antibody Negative Negative 11/04/2023 11:48 PM EDT [facility] Blood Venous blood specimen / Unknown Venipuncture / Unknown 11/04/2023 9:51 PM EDT 11/04/2023 10:07 PM EDT us Karen Christie MD LAB BLOOD ORDERABLES Final Re sult [facility] [address] [place] [address] from Last 3 Months or Most Recently Relevant to Health Maintenance Care Teams Livestock Inspector Relationship Specialty Start Date End Date Pcp, No [address] [place] [address] PCP - General Family Medicine 10/23/23
--- OUTSIDE RECORDS SUMMARY | 2024-09-29 06:42 | XMS_ITS | Clinical Summary ---
Author Organization [facility] Address [address] [place] [address] Care Team Providers Care Director Of Volunteer Services Name Role Phone Tatum Leos MD Primary Care Provider [phone] Allergies Active Allergy Reactions Criticality Noted Date [...] Breakfast. 90 capsule 1 025 2024 Discontinued Active Problems Problem Noted [...] Description 09/15/2024 1:45 PM EDT Office Visit [facility] 2530 [facility] [address] [address] Tatum Leos MD Gastroesophageal reflux disease, unspecified [...] Rivera Aj Anxiety disorder Brother 3 Rivera Aj Depression Brother 3 Rivera Aj Diabetes Brother [...] Mother Natalie Blue Miscarriages / Stillbirths Mother Natalieernie Padron Drug abuse Paternal Grandfather Clinton Aj Diabetes Paternal Grandmother Raquel Aj Drug abuse Paternal Grandmother Raquel Aj Relation Name Status Comments Brother 1 Alive Brother 2 Rivera Aj Brother 3 Rivera Aj Alive Father Riccardo Aj Maternal Aunt Gunjan Ibarra Maternal Grandfather Chester Dawkins Maternal Great-Grandfather Maternal Great-Grandmother Mother Natalie Padron Alive Paternal Grandfather Clinton Aj Alive Paternal [...] 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 on file Not [...] Info) Description 10/04/2024 2:00 PM EDT Telemedicine [facility] [address] [place] [phone] Frances Marsh LCSW [address] [place] [address] 12/22/2024 9:00 AM EST Office Visit [facility] [address] [address] Tatum Leos MD [address] [address] Health Maintenance Due Date Last Done Comments [...] 05/11, 03/21/2021 HEPATITIS C SCREENING Completed 11/04/2023 Procedures Procedure Name Priority Date/Time Associated Diagnosis Comments SCANNED - IMAGING 09/21/2024 SCANNED - IMAGING 09/21/2024 from Last 3 Months Results * IMAGING SCANNED (09/21/2024) Only the most recent of2 resultswithin the time period is included. Anatomical Region Laterality Modality Radiographic Marcella ging us Tatum Leos MD IMG DIAGNOSTIC IMAGING ORDER OBED Final Result from Last 3 Months Care Teams Director Of Volunteer Services Relationship Specialty Start Date End Date Tatum Leos MD [address] [place] [address] PCP - General Family Medicine 11/29/22
--- NOTE | 2024-09-29 07:00 | CT_ITS ---
FINAL REPORT TECHNIQUE: Thin section axial CT images with coronal and sagittal reformats were performed. This study was performed with techniques to keep radiation doses as low as reasonably achievable (ALARA). Individualized dose reduction techniques using automated exposure control or adjustment of mA and/or kV according to the patient''s size were employed. CLINICAL HISTORY: r/o proximal fibula, medial talus fracture FINDINGS: There is a vertical fracture extending through the posterior malleolus. This fracture spans the entire width of the posterior distal tibia well-seen on images 167 through 171 of series 3. Fracture extends into the posterior aspect of the medial malleolus. The lateral malleolus is intact. There is a small ossific density posterior to the talus measuring 8 mm favored to represent a small os trigonum. The medial and lateral compartment joint spaces are intact. IMPRESSION: Fracture of the posterior malleolus extending to the posterior aspect of the medial malleolus. Reviewed, Interpreted and Dictated by Juan Forrest MD Transcribed by Margaret Lerner Authenticated and [facility]
== END 2024-09-29 23:59 | disposition home or self-care (01) ==
LOC: RAD 06:40
PROVIDERS: PCP Family Medicine; Visit Provider Podiatrist
DX: S82.51XA Displaced fracture of medial malleolus of right tibia, initial encounter for closed fracture (principal); M25.471 Effusion, right ankle
CPT/HCPCS: 73700

== ENCOUNTER 2024-10-26 11:56 | Outpatient (CLI) | payer SELFPAY ==
--- OUTSIDE RECORDS SUMMARY | 2024-09-15 13:45 | XMS_ITS | Encounter Summary ---
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 * GERD in Adults: Diet Changes (Barbadian) documented in this encounter Progress Notes * Tatum Leos MD - 09/15/2024 1:45 PM EDT Chief Complaint Vomiting, Heartburn, and weight gain Subjective Elif Aj presents to [facility] acid reflux Symptoms [...] the AVS if appropriate. Patient or patient financial sales representative verbalized consent for the use of Ambient Listening during the visit with Tatum Leos MD for chart documentation. 09/15/2024 14:09 EDT Electronically signed by Tatum Leos MD, 09/15/24, 2:10 PM EDT. documented in this encounter Plan of Treatment Upcoming Encounters Date Type Department Care Team (Late st Contact Info) Description 12/22/2024 9:00 AM EST Office Visit [facility] [address] [facility] [address] [phone] Tatum Leos MD [address] [phone] documented as of this encounter Visit Diagnoses Diagnosis Gastroesophageal reflux disease, unspecified whether esophagitis present- Primary Nausea and vomiting, unspecified vomiting type Weight gain due to medication documented in this encounter Care Teams Cloth Sander Relationship Specialty Start Date End Date Tatum Leos MD [address] [phone] PCP - General Family Medicine 11/29/22 documented as of this encounter
--- OUTSIDE RECORDS SUMMARY | 2024-10-26 11:59 | XMS_ITS | Encounter Summary ---
[facility] Address [address] [place] [address] Care Team Providers Care Wallpaper Printer Name Role Phone Tatum Leos MD Primary Care Provider Reason for Visit * Reason Comments Med Refill Encounter Details Date Type Department Care Team (Late st Contact Info) Description 07/19/2021 Refill [facility] [address] [place] [address] Tatum Leos MD [address] [facility] [address] [place] [address] Major depressive disorder, recurrent episode, moderate degree [...] Description 12/22/2024 9:00 AM EST Office Visit [facility] [address] [address] Tatum Leos MD 2530 [facility] [address] [address] documented as of this encounter Visit Diagnoses [...] documented as of this encounter Care Teams Wallpaper Printer Relationship Specialty Start Date End Date Tatum Leos MD [address] [address] PCP - General Family Medicine 11/29/22 documented as of this encounter
--- OUTSIDE RECORDS SUMMARY | 2024-10-26 11:59 | XMS_ITS | Encounter Summary ---
Author Organization Healthcare Address [address] [place] [address] Care Team Providers Care Triage Rn Name Role Phone Pcp, No Primary Care Provider Unavailabl e Encounter Details Date Type Department Care Team ([facility] st Contact Info) Description 03/30/2021 Community [facility] [address] [place] [address] Lashell Cuello, SUPERVISOR EDUCATION [address] [place] [address] Chronic nausea (Primary Dx); Gastroesophageal reflux disease [...] reflux documented in this encounter Care Teams Triage Rn Relationship Specialty Start Date End Date Pcp, No [address] [place] [address] PCP - General Family Medicine 10/23/23 documented as of this encounter
--- OUTSIDE RECORDS SUMMARY | 2024-10-26 11:59 | XMS_ITS | Clinical Summary ---
Author Organization [facility] Address [address] [place] [address] Care Team Providers Care Supervisor Boarding Name Role Phone Tatum Leos MD Primary Care Provider Allergies Active Allergy Reactions Criticality Noted Date Comments Bupropion Mental Status Change High 04/26/2024 Suicidal thoughts Medications * This document contains information received from the source organization and may not represent a complete record from that organization. norgestimate-ethin yl estradiol (Ortho-Cyclen, 28,) 0.25-35 MG-MCG per tabletIndications: Encounter for surveillance of contraceptive pills,Dysmenorrhea Take 1 tablet by mouth Daily. 84 tablet 4 12/19/19 24 Active lamoTRIgine (LaMICtal) 25 MG tabletIndications: BOBBY (generalized anxiety disorder),Unspecif ied mood (affective) disorder Take 1 tablet by mouth Daily for 14 days, THEN 2 tablets Daily for 14 days, THEN 3 tablets Daily for 32 days. Notify office with rash 138 tablet 07/16/19 25 Active ARIPiprazole (Abilify) 2 MG tabletIndications: Unspecified mood (affective) disorder Take 1 tablet by mouth Daily. 30 tablet 1 08/28/19 25 Active Additional Information Patient not taking.Reported on 09/15/2024 propranolol (INDERAL) 10 MG tabletIndications: BOBBY (generalized anxiety disorder) Take 1-2 tablets by mouth 2 (Two) Times a Day As Needed (anxiety). 120 tablet 08/28/19 25 Active Additional Information Patient not taking.Reported on 09/15/2024 ondansetron ODT (ZOFRAN-ODT) 4 MG disintegrating tabletIndications: Nausea and vomiting, unspecified vomiting type Place 1 tablet on the tongue Every 8 (Eight) Hours As Needed for Nausea or Vomiting. 30 tablet 3 09/16/19 25 Active pantoprazole (PROTONIX) 40 MG EC tabletIndications: Gastroesophageal reflux disease, unspecified whether esophagitis present Take 1 tablet by mouth Every Morning Before Breakfast. 90 tablet 3 09/16/19 25 Active Active Problems Problem Noted Date Diagnosed Date [...] Description 09/15/2024 1:45 PM EDT Office Visit [facility] 2530 [facility] [address] [address] Tatum Leos MD Gastroesophageal reflux disease, unspecified whether esophagitis present (Primary Dx); Nausea and vomiting, unspecified vomiting type; Weight gain due to medication 09/15/2024 Travel 08/27/2024 Travel from Last 3 Months Immunizations Immunization [...] Ibarra jaw, breast Diabetes Maternal Grandfather Chester Mariza Drug abuse Maternal Grandfather Chester Mariza COPD Maternal Great-Grandfather Cancer Maternal Great-Grandmother Anxiety disorder Mother Natalieernie Padron Depression Mother Natalieernie Padron Diabetes Mother Natalieernie Padron Drug abuse Mother Natalie Blue Mental illness Mother Natalieernie Padron Miscarriages / Stillbirths Mother Natalie Padron Drug abuse Paternal Grandfather Clinton Aj [...] 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 file Not [...] Description 12/22/2024 9:00 AM EST Office Visit [facility] [address] [phone] Tatum Leos MD [address] [address] Health Maintenance Due Date Last Done Comments CHLAMYDIA SCREENING 07/25/2020 Pneumococcal Vaccine 0-49 (1 of 2 - PCV) 2023 09/13/2005, 2004, 2004 COVID-19 Vaccine (6 - 2024-2 6 season) 2024 12/20/2021, 10/05/2021, 02/01/2021, Additional history exists INFLUENZA VACCINE 11/10/2024 11/14/2022, , 12/20/2021, Additional history exists ANNUAL PHYSICAL 12/18/2024 12/19/2023 TDAP/TD VACCINES (2 - Td or Tdap) 12/29/2024 015 MENINGOCOCCAL VACCINE Completed 09/29/2020 , 12/29/2014, 12/29/2014 MENINGOCOCCAL B VACCINE Completed 03/21/2021, 09/29 HPV VACCINES Completed 10/01/2021, 05/11, 03/21/2021 HEPATITIS C SCREENING Completed 11/04/2023 Procedures Procedure Name Priority Date/Time Associated Diagnosis Comments SCANNED - IMAGING 09/29/2024 SCANNED - IMAGING 09/21/2024 SCANNED - IMAGING 09/21/2024 from Last 3 Months Results * IMAGING SCANNED (09/29/2024) Only the most recent of3 resultswithin the time period is included. Anatomical Region Laterality Modality Radiographic Marcella ging aTtum Leos MD IMG DIAGNOSTIC IMAGING ORDER OBED Final Result from Last 3 Months Care Teams Supervisor Boarding Relationship Specialty Start Date End Date Tatum Leos MD [address] [address] (work) PCP - General Family Medicine 11/29/22
--- OUTSIDE RECORDS SUMMARY | 2024-10-26 11:59 | XMS_ITS | Clinical Summary ---
Author Organization Healthcare Address [address] [place] [address] Care Team Providers Care Surface Plate Finisher Name Role Phone Pcp, No Primary Care [...] if needed for headaches or pain. Under [facility], monthly prescriptions (30 days) can [...] Recorded Patient Health Questionnaire-2 Score 2 11/24/2023 [place] Depression Scale Answer Date Recorded [place] Depression Scale Total 8 11/24/2023 The thought [...] 2 - PCV) 2023 09/13/2005, 2004, 2004 [id number] Vaccine ( season) 2024 12/20/2021, 10/05/2021, 02/01/2021, Additional history exists [facility]-Influenza [...] Antibody Negative Negative 11/04/2023 11:48 PM EDT [facility] Blood Venous blood specimen / Unknown Venipuncture / Unknown 11/04/2023 9:51 PM EDT 11/04/2023 10:07 PM EDT us Karen Christie MD LAB BLOOD ORDERABLES Final Re sult [facility] [address] [place] [address] from Last 3 Months or Most Recently Relevant to Health Maintenance Care Teams Surface Plate Finisher Relationship Specialty Start Date End Date Pcp, No [address] [place] [address] PCP - General Family Medicine 10/23/23
--- OUTSIDE RECORDS SUMMARY | 2024-10-26 11:59 | XMS_ITS | Encounter Summary ---
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 Not on file documented as of this encounter Plan of Treatment Upcoming Encounters Date Type Department Care Team (Late st Contact Info) Description 12/22/2024 9:00 AM EST Office Visit [facility] [address] [facility] [address] [place] [phone] Tatum Leos MD [address] [phone] documented as of this encounter Visit Diagnoses Not on filedocumented in this encounter Care Teams Installation Technician Relationship Specialty Start Date End Date Tatum Leos MD [address] [facility] [address] [place] [address] PCP - General Family Medicine 11/29/22 documented as of this encounter
--- OUTSIDE RECORDS SUMMARY | 2024-10-26 11:59 | XMS_ITS | Encounter Summary ---
Author Organization Healthcare Address [address] [place] [address] Care Team Providers Care Community Theater Actor Name Role Phone PcpAislinn Primary Care Provider Unavailabl e Encounter Details Date Type Department Care Team ([facility] st Contact Info) Description 03/27/2021 Community [facility] [address] [place] [address] Lashell Cuello, MARKETING MANAGER [address] [place] [address] Chronic nausea (Primary Dx) Social History Tobacco [...] alone documented in this encounter Care Teams Community Theater Actor Relationship Specialty Start Date End Date Pcp, Aislinn [address] [place] [address] PCP - General Family Medicine 10/23/23 documented as of this encounter
--- OUTSIDE RECORDS SUMMARY | 2024-10-26 11:59 | XMS_ITS | Encounter Summary ---
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 Not on file documented as of this encounter Functional Status documented as of this encounter Plan of Treatment Upcoming Encounters Date Type Department Care Team (Late st Contact Info) Description 12/22/2024 9:00 AM EST Office Visit [facility] 2530 [facility] RAMOS [address] [phone] Tatum Leos MD 2530 [facility] [address] [address] documented as of this encounter Visit Diagnoses Not on filedocumented in this encounter Care Teams Ranch Hand Supervisor Relationship Specialty Start Date End Date Tatum Leos MD [address] [address] PCP - General Family Medicine 11/29/22 documented as of this encounter
--- NOTE | 2024-10-26 12:14 | XR_ITS ---
FINAL REPORT CLINICAL HISTORY: evaluate right ankle fracture COMPARISON: 09/29/2024 CT FINDINGS: RIGHT ANKLE 3 views of the right ankle were obtained. There is a fracture of the posterior malleolus with minimal posterior displacement, similar to prior exam. Fracture component extending into the medial malleolus seen on CT is not well-visualized on this exam. IMPRESSION: No significant change in posterior malleolus fracture. Reviewed, Interpreted and Dictated by Lexx Newman MD Transcribed by Laura Staton Authenticated and [facility]
== END 2024-10-26 23:59 | disposition home or self-care (01) ==
LOC: RAD 11:57
PROVIDERS: PCP Family Medicine; Visit Provider Podiatrist
DX: S82.841A Displaced bimalleolar fracture of right lower leg, initial encounter for closed fracture (principal)
CPT/HCPCS: 73610

== ENCOUNTER 2024-12-06 13:47 | Outpatient (CLI) | payer SELFPAY ==
--- NOTE | 2024-12-06 13:49 | XR_ITS ---
FINAL REPORT CLINICAL HISTORY: Right Ankle Fracture COMPARISON: 10/26/2024 FINDINGS: RIGHT ANKLE 3 views of the right ankle were obtained. There is no acute fracture or dislocation. The mortise is intact. Visualized joint spaces are normally aligned. Mortise is intact. There is moderate soft tissue edema noted. IMPRESSION: No acute bony abnormality. Reviewed, Interpreted and Dictated by Juan Forrest MD Transcribed by Laura Staton Authenticated and [facility][1]
--- OUTSIDE RECORDS SUMMARY | 2024-12-06 14:43 | XMS_ITS | Clinical Summary ---
Author Organization Healthcare Address [address] [place] [address] Care Team Providers Care Rooming House Inspector Name Role Phone Pcp, No Primary [...] if needed for headaches or pain. Under [facility] law, monthly prescriptions (30 days) can [...] Recorded Patient Health Questionnaire-2 Score 2 11/24/2023 [place] Depression Scale Answer Date Recorded [place] Depression Scale Total 8 11/24/2023 The thought [...] SDOH Screenings 2022 [facility]-Adult SDOH Screenings 2022 [id number] Vaccine ( season) 2024 12/20/2021, 10/05/2021, 02/01/2021, Additional history exists [facility]-Influenza Vaccine (#1) 10/11/202411/14, 12/20/2021, 02/01/2021, Additional history exists [facility]-Depression Screening 11/23/2024 024, 11/24/2023, 11/24/2023 [facility]Y-DTaP,Tdap,and Td Vaccines (7 - Td or Tdap) 12/29/2024 12/29/2014, 09/19/2009, 06/04/2007, Additional history exists UKY-Zoster Vaccines (1 of 2) 2054 09/19/2009, 09/13/2005 UKY-HIB Vaccines Completed 09/13/2005, , 2004 [facility]-Hepatitis B Vaccines Completed 006, 2004, 2004 [facility]Y-Pneumococcal Vaccine: Pediatrics (0 to 5 Years) and At-Risk Patients (6 to 49 Years) Aged Out 09/13/2005, 2004, 2004 No longer eligible based on patient's age to complete this topic [facility]Y-Varicella Vaccines Completed 09/19/2009, 2005 [facility]-Hepatitis A [...] Antibody Negative Negative 11/04/2023 11:48 PM EDT [facility] Blood Venous blood specimen / Unknown Venipuncture / Unknown 11/04/2023 9:51 PM EDT 11/04/2023 10:07 PM EDT us Karen Christie MD LAB BLOOD ORDERABLES Final Re sult [facility] [address] [place] [address] from Last 3 Months or Most Recently Relevant to Health Maintenance Care Teams Rooming House Inspector Relationship Specialty Start Date End Date Pcp, No [address] [place] [address] PCP - General Family Medicine 10/23/23
--- OUTSIDE RECORDS SUMMARY | 2024-12-06 14:44 | XMS_ITS | Encounter Summary ---
Author [facility] Address [address] [place] [address] Care Team Providers Care Income Tax Preparer Name Role Phone Tatum Leos MD Primary Care Provider Reason for Visit * Reason Comments Med Refill Encounter Details Date Type Department Care Team (Late st Contact Info) Description 07/19/[address] [facility] [address] [place] [address] Tatum Leos MD [address] [facility] [address] [place] [address] Major depressive disorder, recurrent episode, moderate degree [...] Description 12/22/2024 9:00 AM EST Office Visit [facility] [address] [address] Tatum [facility]os MD [facility]30 [facility] [address] [address] documented as of this encounter Visit Diagnoses [...] documented as of this encounter Care Teams Income Tax Preparer Relationship Specialty Start Date End Date Tatum Leos MD [address] [address] PCP - General Family Medicine 11/29/22 documented as of this encounter
--- OUTSIDE RECORDS SUMMARY | 2024-12-06 14:44 | XMS_ITS | Clinical Summary ---
Author Organization [facility] Address [address] [place] [address] Care Team Providers Care [employer] Manager Name Role Phone Tatum Leos MD Primary Care Provider [phone] Allergies Active Allergy Reactions Criticality Noted Date [...] Daily. 84 tablet 4 12/19/19 24 Active Additional Information Patient not taking.Reported on 11/22/2024 propranolol (INDERAL) 10 MG tabletIndications :BOBBY (generalized [...] 25 Active pantoprazole (PROTONIX) 40 MG EC tabletIndications :Gastroesophageal reflux disease, unspecified whether esophagitis present Take 1 tablet by mouth Every Morning Before Breakfast. 90 tablet 3 09/16/19 25 Active Cholecalciferol 62.5 MCG (2500 UT) capsule Take 1 capsule by mouth 1 (One) Time Per Week. Active lamoTRIgine (LaMICtal) 25 MG tabletIndications :Unspecified mood (affective) disorder Take 3 tablets by mouth Daily. Notify office with rash. Restart dose at 25 mg/day if dose not taken for 5 consecutive days 90 tablet 2 11/23/19 25 Active lamoTRIgine (LaMICtal) 25 MG tabletIndications :BOBBY (generalized anxiety disorder),Unspeci fied mood (affective) disorder Take 1 tablet by mouth Daily for 14 days, THEN 2 tablets Daily for 14 days, THEN 3 tablets Daily for 32 days. Notify office with rash 138 tablet 07/16/19 25 025 Discontinue d(*Therapy completed) ARIPiprazole (Abilify) 2 MG tabletIndications :Unspecified mood (affective) disorder Take 1 tablet by mouth Daily. 30 tablet 1 08/28/19 25 025 Discontinue d(Patient Reported Not Taking) lamoTRIgine (LaMICtal) 25 MG tabletIndications :Unspecified mood (affective) disorder Take 3 tablets by mouth Daily. Notify office with rash. Restart dose at 25 mg/day if dose not taken for 5 consecutive days 90 tablet 11/05/19 25 025 Discontinue d(Reorder) Active Problems Problem Noted Date Diagnosed Date [...] Description 09/15/2024 1:45 PM EDT Office Visit [facility] [address] [phone] Tatum Leos MD Gastroesophageal reflux disease, unspecified whether esophagitis present (Primary Dx); Nausea and vomiting, unspecified vomiting type; Weight gain due to medication 09/15/2024 Travel from Last 3 Months Immunizations Immunization [...] Comments Brother 1 Alive Brother 2 Rivera Gilbertley Brother 3 Rivera Aj Alive Father Riccardo [...] Answer Date Recorded Patient Health Questionnaire-9 Score 16 11/22/2024 Comments No Sex and Gender Information Value Date Recorded Sex Assigned at Female 08/26/2024 3:37 PM EDT Legal Sex Female 9:13 AM EDT Gender Identity Not on file Sexual Orientation Not on file 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 Not on file Last Filed Vital Signs Vital Sign Reading Time Taken Comments Blood Pressure 126/76 09/15/2024 1:54 PM EDT Pulse 97 09/15/2024 1:54 PM EDT Temperature 36.6 C (97.8 F) 09/15/2024 1:54 PM EDT Respiratory Rate 16 01/22/2024 8:54 AM EST Oxygen Saturation 98% 09/15/2024 1:54 PM EDT Inhaled Oxygen Concentration - - Weight 107 kg (235 lb) 11/22/2024 12:14 PM EDT s tated Height 162.6 cm (5' 4.02 ) 09/15/2024 1:54 PM ED T Body Mass Index 40.32 09/15/2024 1:54 PM EDT Plan of Treatment Upcoming Encounters Date Type Department Care Team (Late st Contact Info) Description 12/22/2024 9:00 AM EST Office Visit [facility] [address] [phone] Tatum Leos MD [address] [address] Health Maintenance Due Date Last Done Comments CHLAMYDIA SCREENING 07/25/2020 Pneumococcal Vaccine 0-49 (1 of 2 - PCV) 2023 09/13/2005, 2004, 2004 INFLUENZA VACCINE 09/10/2024 11/14/2022, , 12/20/2021, Additional history exists ANNUAL PHYSICAL 12/18/2024 12/19/2023 TDAP/TD VACCINES (2 - Td or Tdap) 12/29/2024 015 MENINGOCOCCAL VACCINE Completed 09/29/2020 , 12/29/2014, 12/29/2014 MENINGOCOCCAL B VACCINE Completed 03/21/2021, 09/29 HPV VACCINES Completed 10/01/2021, 05/11, 03/21/2021 HEPATITIS C SCREENING Completed 11/04/2023 Procedures Procedure Name Priority Date/Time Associated Diagnosis Comments SCANNED - IMAGING 10/26/2024 SCANNED - IMAGING 09/29/2024 SCANNED - IMAGING 09/21/2024 SCANNED - IMAGING 09/21/2024 from Last 3 Months Results * IMAGING SCANNED (10/26/2024) Only the most recent of4 resultswithin the time period is included. Anatomical Region Laterality Modality Radiographic Marcella ging us Tatum Leos MD IMG DIAGNOSTIC IMAGING ORDER OBED Final Result from Last 3 Months Care Teams [employer] Manager Relationship Specialty Start Date End Date Tatum Leos MD [address] [place] [address] PCP - General Family Medicine 11/29/22
--- OUTSIDE RECORDS SUMMARY | 2024-12-06 14:44 | XMS_ITS | Encounter Summary ---
Author Organization [facility] Address [address] [place] [address] Care Team Providers Care Learning And Development Consultant Name Role Phone PcpAislinn Primary Care Provider Unavailabl e Encounter Details Date Type Department Care Team ([facility] st Contact Info) Description 03/27/2021 Community [facility] [address] [place] [address] Lashell Cuello, CHIEF PAYROLL CLERK [address] [place] [address] Chronic nausea (Primary Dx) Social History Tobacco [...] alone documented in this encounter Care Teams Learning And Development Consultant Relationship Specialty Start Date End Date Pcp, Aislinn [address] [place] [address] PCP - General Family Medicine 10/23/23 documented as of this encounter
--- OUTSIDE RECORDS SUMMARY | 2024-12-06 14:44 | XMS_ITS | Encounter Summary ---
Author Organization [facility] Address [address] [place] [address] Care Team Providers Care Caretaker Resort Name Role Phone Pcp, No Primary Care Provider Unavailabl e Encounter Details Date Type Department Care Team ([facility] st Contact Info) Description 03/30/2021 Community [facility] [address] [place] [phone] Lashell Cuello, HOG TENDER [address] [place] [address] Chronic nausea (Primary Dx); Gastroesophageal reflux disease [...] reflux documented in this encounter Care Teams Caretaker Resort Relationship Specialty Start Date End Date Pcp, No [address] [place] [address] PCP - General Family Medicine 10/23/23 documented as of this encounter
== END 2024-12-06 23:59 | disposition home or self-care (01) ==
LOC: RAD 13:48
PROVIDERS: PCP Family Medicine; Visit Provider Podiatrist
DX: S82.54XD Nondisplaced fracture of medial malleolus of right tibia, subsequent encounter for closed fracture with routine healing (principal); X58.XXXD Exposure to other specified factors, subsequent encounter
CPT/HCPCS: 73610